=== PATIENT | male | born 1975 | race American Indian/Alaskan Native ===

== ENCOUNTER 2017-03-29 09:52 | Observation (INO) | payer OTHER ==
[2017-03-29 09:54] VITALS: BMI 32.5
--- NOTE | 2017-03-29 10:39 | ED PDOC ---
Upper Extremity Pain/Injury Time Seen by Provider: 03/29/17 10:09 Chief Complaint (Nursing): Upper Extremity Problem/Injury Chief Complaint (Provider): Left arm pain History Per: Patient History/Exam Limitations: no limitations Onset/Duration Of Symptoms: Days Additional Complaint(s): Pt fractured left humerus 03/06/17. Pt states he has been having pain since and has been using percocet but has not helped much. Pt states when he moves or sneezes he feels the bones moving. Past Medical History Reviewed: Historical Data, Nursing Documentation, Vital Signs Vital Signs: Last Vital Signs Temp 97.7 F 03/29/17 09:54 Pulse 86 03/29/17 09:54 Resp 17 03/29/17 09:54 BP 172/108 H 03/29/17 09:54 Pulse Ox 100 03/29/17 09:54 - Medical History PMH: Arthritis, Fractures (left elbow fx,collar bone,right shoulder rotellar cuff), HTN Denies: Depression, Chronic Kidney Disease - Family History Family History: States: Unknown Family Hx - Living Arrangements Living Arrangements: With Family - Social History Current smoker - smoking cessation education provided: No - Immunization History Hx Tetanus Toxoid Vaccination: No Hx Influenza Vaccination: No Hx Pneumococcal Vaccination: No - Home Medications Home Medications: Ambulatory Orders Medication Instructions Recorded Folic Acid 1 mg PO DAILY #30 tab 06/20/16 Thiamine [Vitamin B1 Tab] 100 mg PO DAILY #30 tab 06/20/16 Cyclobenzaprine [Cyclobenzaprine 10 mg PO BID PRN #20 tab 03/14/17 HCl] Famotidine [Pepcid] 20 mg PO DAILY #30 tab 03/14/17 GlipiZIDE SR [Glucotrol XL] 5 mg PO DAILY #30 tab 03/14/17 Losartan [Cozaar] 100 mg PO DAILY #30 tab 03/14/17 Metoprolol Tartrate [Lopressor] 50 mg PO BID #60 tab 03/14/17 Rosuvastatin Calcium [Crestor] 5 mg PO HS #30 tab 03/14/17 oxyCODONE/Acetaminophen [Percocet 1 ea PO Q4 PRN #30 tab 03/14/17 5/325 mg Tab] Ibuprofen [Motrin Tab] 600 mg PO Q8H PRN 03/29/17 amLODIPine [Norvasc] 10 mg PO DAILY 03/29/17 - Allergies Allergies/Adverse Reactions: Allergies Allergy/AdvReac Type Severity Reaction Status Date / Time No Known Allergies Allergy Verified 03/29/17 10:02 Review of Systems ROS Statement: Except As Marked, All Systems Reviewed And Found Negative Constitutional: Negative for: Fever, Sweats Musculoskeletal: Positive for: Arm Pain (Left, upper ) - Laboratory Results Result Diagrams: 03/29/17 10:44 03/29/17 10:44 - ECG O2 Sat by Pulse Oximetry: 100 Medical Decision Making Medical Decision Making: Discussed with Dr. Barnes who would like patient admitted to [facility] for Disposition - Disposition
[2017-03-29 10:48] LABS: HEMATOCRIT 39.3 % (35.0-51.0); MEAN CELL VOLUME 74.8 fl (80.0-94.0); MEAN CORPUSCULAR HEMOGLOBIN 23.6 pg (27.0-31.0); MEAN CORPUSCULAR HGB CONC 31.5 g/dL (33.0-37.0); WHITE BLOOD COUNT 10.8 K/uL (4.8-10.8)
[2017-03-29 11:00] LABS: PARTIAL THROMBOPLASTIN TIME 30.8 Seconds (25.6-37.1)
[2017-03-29 11:11] LABS: ALB/GLOB RATIO 1.4 (1.0-2.1); ALKALINE PHOSPHATASE 89 U/L (38-126); ALT/SGPT 74 U/L (21-72); AST/SGOT 28 U/L (17-59); BILIRUBIN,TOTAL 0.3 mg/dl (0.2-1.3); BLOOD UREA NITROGEN 11 mg/dl (9-20); CALCIUM 9.5 mg/dL (8.4-10.2); CARBON DIOXIDE 21 mmol/L (22-30); CHLORIDE 106 mmol/L (98-107); GFR AFRICAN-AMERICAN > 60; GLUCOSE,RANDOM 150 mg/dL (75-110); POTASSIUM 4.4 MMOL/L (3.6-5.0); SODIUM 139 mmol/l (132-148); TOTAL PROTEIN 7.8 G/DL (6.3-8.2)
[2017-03-29] MEDS ORDERED: Morphine 4 MG/ML VIAL ONE (12:42)
[2017-03-29] MEDS ORDERED: Lidocaine 4% (Laryng-O-Jet) Kit MM ONE (13:13)
[2017-03-29] MEDS ORDERED: Rocuronium 10 mg/ml (5 ml) ONE ×2 (13:13→15:42)
[2017-03-29] MEDS ORDERED: Propofol 10 mg/ml Inj (20 ML) ONE ×2 (13:13→14:26)
[2017-03-29] MEDS ORDERED: Succinylcholine 200 mg/10 ml Inj IV ONE (13:13)
[2017-03-29] MEDS ORDERED: Lidocaine 1% Inj (20ml) ONE (13:17)
[2017-03-29] MEDS ORDERED: ceFAZolin IV 1 gm in Dextrose 2 GM/100 ML BAG IVPB ONE (13:17)
[2017-03-29] MEDS ORDERED: Bupivacaine 0.5% Inj(30mL) ONE (13:17)
[2017-03-29] MEDS ORDERED: EPINEPHrine 1 mg/ml (1:1000) Inj ONE (13:17)
[2017-03-29] MEDS ORDERED: SENSORCAINE 0.5% W/EPINEPHRINE 50ML MDV IJ ONE (13:19)
--- NOTE | 2017-03-29 13:27 | RAD ---
PROCEDURE: Radiographs of the left humerus. HISTORY: left humerus fracture COMPARISON: None. FINDINGS: BONES: Midshaft fracture left humerus. There is distraction and angulation of the major fracture fragments. This does not appear to be a pathologic fracture. SOFT TISSUES: Normal. OTHER FINDINGS: None. IMPRESSION: Acute fracture midshaft left humerus described in greater detail above.
[2017-03-29] MEDS ORDERED: Lactated Ringer's 1,000 ML IV ONE ×3 (14:05→15:40)
[2017-03-29] MEDS ORDERED: Midazolam 2 MG/2 ML VIAL ONE (14:10)
[2017-03-29] MEDS ORDERED: Dexamethasone 4 mg/1 ml ONE (14:41)
[2017-03-29] MEDS ORDERED: Desflurane Inhalation Anesthetic Liq (240 ml) ONE (15:56)
[2017-03-29] MEDS ORDERED: Neostigmine Methylsulfate 2 MG/2 ML ML IV ONE ×2 (16:31→17:46)
[2017-03-29] MEDS ORDERED: Lactated Ringer's 500 ML IV ONE (17:20)
[2017-03-29] MEDS ORDERED: Oxycodone/Acetaminophen 5/325 mg Tab PO PRN ×2 (18:12)
[2017-03-29] MEDS ORDERED: HYDROmorphone 0.5 mg/0.5 ml ISec IVP PRN (18:13)
[2017-03-29] MEDS ORDERED: Lactated Ringer's 1,000 ML IV SCH (18:15)
--- NOTE | 2017-03-29 18:18 | PCM.ANESB1 ---
Interscalene Block - Brachial Plexus Date of Procedure: 03/29/17 Anesthesiologist: Darwin Pre-Procedure Diagnosis: Left humerus fracture Post-Procedure Diagnosis: Same Procedure Performed: Interscalene Block of Brachial Plexus Left - Procedure Interscalene Block of Brachial Plexus: This procedure was explained to the patient that it is for post-operative pain management. Consent was obtained after a thorough discussion with the patient regarding the benefits and possible complications of local anesthetic block of the Brachial Plexus at the Interscalene area. The patient was brought to the Operating Room and standard monitors were applied. Time out was held with the circulating nurse to confirm the correct surgery and appropriate block. After applying Oxygen by nasal cannula and administering IV Sedation, the patient's head was gently rotated away from the ___left___operative shoulder and the anterior scalene groove was carefully palpated. The ultrasound transducer was then applied to the skin in the transverse plane and the brachial plexus was visualized lateral to the carotid artery and in between the anterior and middle scalene muscles. After identification,the anterior lateral portion of the neck was prepped with Chloraprep and Lidocaine 1% was injected subcutaneously for topical analgesia. At this point, a # 22 gauge Stimuplex 2 inches insulated needle was inserted into the interscalene groove and directed in a caudal and midline direction. The needle was inserted lateral to the ultrasound transducer in-plane towards the brachial plexus in a [id number] direction. Needle advancement was performed carefully under direct ultrasound visualization. Nerve stimulator was used and twitched of the affected extremity including the hand brachialis muscles, biceps and the deltoid was obtained at a current of __0.4___MA. After repeated negative aspiration,_2____cc of__0.5%___,___bupivicaine with 1:200,000 epinephrine were injected and this was followed with __38___cc of __0.5___% bupivicaine with 1:200,000 epinephrine . Under ultrasound guidance the local anesthetics were observed surrounding the roots of the brachial plexus. The needle was removed intact and sterile dressing was applied. The patient had stable vital signs, was conscious and in no apparent distress. The patient tolerated the interscalene block of the bracheal plexus well with stable vital signs and was prepared for subsequent surgery.
--- NOTE | 2017-03-29 18:43 | CP.PCM.HP ---
History of Present Illness - History of Present Illness History of Present Illness: CC: Left Arm Pain after Fracture History of Present Illness: A 41yoM with H/O DMII, HTN and Dyslipidemia presented with fractured left humerus 03/06/17. Pt states he has been having pain since and has been using Percocet but has not helped much. Pt states when he moves or sneezes he feels the bones moving. Present on Admission - Present on Admission Any Indicators Present on Admission: No Review of Systems - Review of Systems All systems: reviewed and no additional remarkable complaints except - Musculoskeletal Musculoskeletal: As Per HPI Past Patient History - Infectious Disease Hx of Infectious Diseases: None - Past Medical History & Family History Past Medical History?: Yes Past Family History: Reviewed and not pertinent - Past Social History Smoking Status: Light Smoker < 10 Cigarettes Daily Drugs: Denies - CARDIAC Hx Hypertension: Yes (HTN) - PULMONARY Hx Respiratory Disorders: No - NEUROLOGICAL Hx Neurological Disorder: No - HEENT Hx HEENT Problems: No - RENAL Hx Chronic Kidney Disease: No - ENDOCRINE/METABOLIC Hx Diabetes Mellitus Type 2: Yes - HEMATOLOGICAL/ONCOLOGICAL Hx Blood Disorders: No - INTEGUMENTARY Hx Dermatological Problems: No - MUSCULOSKELETAL/RHEUMATOLOGICAL Hx Arthritis: Yes Hx Fractures: Yes (left elbow fx,collar bone,right shoulder rotellar cuff) - GASTROINTESTINAL Hx Gastrointestinal Disorders: No - GENITOURINARY/GYNECOLOGICAL Hx Genitourinary Disorders: No - PSYCHIATRIC Hx Depression: No - SURGICAL HISTORY Hx Surgeries: Yes Hx Orthopedic Surgery: Yes (RIGHT ROTATOR, LEFT ELBOW) - ANESTHESIA Hx Anesthesia: Yes Hx Anesthesia Reactions: No Hx Malignant Hyperthermia: No Meds Allergies/Adverse Reactions: Allergies Allergy/AdvReac Type Severity Reaction Status Date / Time No Known Allergies Allergy Verified 03/29/17 10:02 Physical Exam - Constitutional Appears: Well, No Acute Distress - Head Exam Head Exam: ATRAUMATIC, NORMAL INSPECTION, NORMOCEPHALIC - Eye Exam Eye Exam: EOMI, Normal appearance, PERRL Pupil Exam: NORMAL ACCOMODATION, PERRL - ENT Exam ENT Exam: Mucous Membranes Moist, Normal Exam - Neck Exam Neck exam: Positive for: Full Rom, Normal Inspection Additional comments: Surgical scar anteriorly for the C-Spine Surgery - Respiratory Exam Respiratory Exam: Clear to Auscultation Bilateral, NORMAL BREATHING PATTERN - Cardiovascular Exam Cardiovascular Exam: REGULAR RHYTHM, +S1, +S2 - GI/Abdominal Exam GI & Abdominal Exam: Normal Bowel Sounds, Soft. absent: Tenderness - Extremities Exam Additional comments: Left arm S/P ORIF with Immobilizations with Sling, and Neurovacular Bundle normal distal;ly - Back Exam Back exam: NORMAL INSPECTION - Neurological Exam Neurological exam: Alert, CN II-XII Intact, Normal Gait, Oriented x3, Reflexes Normal - Psychiatric Exam Psychiatric exam: Normal Affect, Normal Mood - Skin Skin Exam: Dry, Intact, Normal Color, Warm Results - Vital Signs Recent Vital Signs: Last Vital Signs Temp 97.7 F 03/29/17 09:54 Pulse 89 03/29/17 12:48 Resp 18 03/29/17 12:48 BP 150/90 03/29/17 12:48 Pulse Ox 100 03/29/17 12:50 - Labs Result Diagrams: 03/29/17 10:44 03/29/17 10:44 Labs: Laboratory Results - last 24 hr 03/29/17 03/29/17 03/29/17 10:44 10:44 10:44 WBC 10.8 RBC 5.25 Hgb 12.4 Hct 39.3 MCV 74.8 L MCH 23.6 L MCHC 31.5 L RDW 15.0 H Plt Count 356 PT 10.9 INR 1.0 APTT 30.8 Sodium 139 Potassium 4.4 Chloride 106 Carbon Dioxide 21 L Anion Gap 16 BUN 11 Creatinine 0.8 Est GFR ( Amer) > 60 Est GFR (Non-Af Amer) > 60 POC Glucose (mg/dL) Random Glucose 150 H Calcium 9.5 Total Bilirubin 0.3 AST 28 ALT 74 H Alkaline Phosphatase 89 Total Protein 7.8 Albumin 4.6 Globulin 3.3 Albumin/Globulin Ratio 1.4 Blood Type Antibody Screen Crossmatch BBK History Checked 03/29/17 03/29/17 03/29/17 11:24 16:00 18:30 WBC RBC Hgb Hct MCV MCH MCHC RDW Plt Count PT INR APTT Sodium Potassium Chloride Carbon Dioxide Anion Gap BUN Creatinine Est GFR ( Amer) Est GFR (Non-Af Amer) POC Glucose (mg/dL) 126 H 203 H Random Glucose Calcium Total Bilirubin AST ALT Alkaline Phosphatase Total Protein Albumin Globulin Albumin/Globulin Ratio Blood Type O POSITIVE Antibody Screen Negative Crossmatch See Detail BBK History Checked Patient has bt - EKG Data EKG Interpreted by: Myself EKG shows normal: Sinus rhythm Rate: Normal - EKG Data EKG comments: LVH - Imaging and Cardiology X-Ray Left Humurus: Status: Report reviewed by me Additional comment: Radiographs of the left humerus. HISTORY: left humerus fracture COMPARISON: None. FINDINGS: BONES: Midshaft fracture left humerus. There is distraction and angulation of the major fracture fragments. This does not appear to be a pathologic fracture. SOFT TISSUES: Normal. OTHER FINDINGS: None. IMPRESSION: Acute fracture midshaft left humerus described in greater detail above. Assessment & Plan (1) Closed fracture of shaft of left humerus Assessment and Plan: S/P ORIF today Pain Medication PRN Continue the Sling Status: Acute (2) Diabetes mellitus Status: Chronic (3) Hypertension Status: Chronic (4) Dyslipidemia Status: Chronic
[2017-03-29 19:57] VITALS: RESP 20; O2SAT 97
[2017-03-29 20:42] VITALS: BP 127/72; PULSE 98; TEMP 98
--- NOTE | 2017-03-30 03:18 | CP.PCM.DIS ---
Provider - Provider Date of Admission: 03/29/17 12:04 Attending physician: Shavonne Dow MD Time Spent in preparation of Discharge (in minutes): 20 Diagnosis - Discharge Diagnosis (1) Closed fracture of shaft of left humerus Status: Acute (2) Diabetes mellitus Status: Chronic (3) Hypertension Status: Chronic (4) Dyslipidemia Status: Chronic Hospital Course - Lab Results Lab Results: Most Recent Lab Values WBC 10.8 K/uL (4.8-10.8) 03/29/17 10:44 RBC 5.25 Mil/uL (4.40-5.90) 03/29/17 10:44 Hgb 12.4 g/dL (12.0-18.0) 03/29/17 10:44 Hct 39.3 % (35.0-51.0) 03/29/17 10:44 MCV 74.8 fl (80.0-94.0) L 03/29/17 10:44 MCH 23.6 pg (27.0-31.0) L 03/29/17 10:44 MCHC 31.5 g/dL (33.0-37.0) L 03/29/17 10:44 RDW 15.0 % (11.5-14.5) H 03/29/17 10:44 Plt Count 356 K/uL (130-400) 03/29/17 10:44 PT 10.9 Seconds (9.8-13.1) 03/29/17 10:44 INR 1.0 (0.9-1.2) 03/29/17 10:44 APTT 30.8 Seconds (25.6-37.1) 03/29/17 10:44 Sodium 139 mmol/l (132-148) 03/29/17 10:44 Potassium 4.4 MMOL/L (3.6-5.0) 03/29/17 10:44 Chloride 106 mmol/L (98-107) 03/29/17 10:44 Carbon Dioxide 21 mmol/L (22-30) L 03/29/17 10:44 Anion Gap 16 (10-20) 03/29/17 10:44 BUN 11 mg/dl (9-20) 03/29/17 10:44 Creatinine 0.8 mg/dl (0.8-1.5) 03/29/17 10:44 Est GFR ( Amer) > 60 03/29/17 10:44 Est GFR (Non-Af Amer) > 60 03/29/17 10:44 POC Glucose (mg/dL) 203 mg/dL (65-110) H 03/29/17 18:30 Random Glucose 150 mg/dL (75-110) H 03/29/17 10:44 Calcium 9.5 mg/dL (8.4-10.2) 03/29/17 10:44 Total Bilirubin 0.3 mg/dl (0.2-1.3) 03/29/17 10:44 AST 28 U/L (17-59) 03/29/17 10:44 ALT 74 U/L (21-72) H 03/29/17 10:44 Alkaline Phosphatase 89 U/L (38-126) 03/29/17 10:44 Total Protein 7.8 G/DL (6.3-8.2) 03/29/17 10:44 Albumin 4.6 g/dL (3.5-5.0) 03/29/17 10:44 Globulin 3.3 gm/dL (2.2-3.9) 03/29/17 10:44 Albumin/Globulin Ratio 1.4 (1.0-2.1) 03/29/17 10:44 Blood Type O POSITIVE 03/29/17 16:00 Antibody Screen Negative 03/29/17 16:00 Crossmatch See Detail 03/29/17 16:00 BBK History Checked Patient has bt 03/29/17 16:00 Discharge Exam - Head Exam Head Exam: ATRAUMATIC, NORMAL INSPECTION, NORMOCEPHALIC Discharge Plan - Follow Up Plan Condition: STABLE Disposition: HOME/ ROUTINE
--- NOTE | 2017-03-30 15:29 | CARD ---
APPROVED REPORT EKG Measurement Heart [id number] <Conclusion> Normal sinus rhythm Moderate voltage criteria for LVH, may be normal variant Borderline ECG
--- NOTE | 2017-03-30 19:04 | RAD ---
PROCEDURE: Intraoperative Fluoroscopy. HISTORY: LEFT HUMERUS FINDINGS: Fluoroscopic assistance was provided for open reduction internal fixation of left humeral fracture. Please refer to the operative with a total cumulative dose 4.32 mGy.
--- NOTE | 2017-03-31 21:40 | PCM.SURG1 ---
Surgeon's Initial Post Op Note - Surgeon's Notes Surgeon: jess Sourcing Consultant: paddy Type of Anesthesia: General Endo Pre-Operative Diagnosis: left humerus shaft fracture Operative Findings: see dictation Post-Operative Diagnosis: same Operation Performed: humeral shaft ORIF, radial nerve neuroplasty Specimen/Specimens Removed: o Estimated Blood Loss: EBL {In ML}: 650 Post-Op Condition: Good Date of Surgery/Procedure: 03/29/17 Time of Surgery/Procedure: 14:00
--- NOTE | 2017-04-01 11:02 | CON ---
DATE: 03/29/2017 REASON FOR CONSULTATION: Left humeral shaft fracture. HISTORY OF PRESENT ILLNESS: A 41-year-old male, who presents to the emergency room on today's visit with complaints of left arm pain, instability, and difficulty using his arm. He is complaining of pain of 7-8/10 in severity. The patient states he sustained a fall, landing on his left arm, now with difficulty moving it. Initial x-rays confirmed displaced humeral shaft fracture, and I was consulted for further evaluation. The patient was seen and evaluated in the emergency room and was diagnosed with humeral shaft fracture and radial nerve palsy. PHYSICAL EXAMINATION: EXTREMITIES: Left arm, skin is intact. Sensation is intact to medial, ulnar, nerve distribution to light touch. The patient has weakness of 4/5 on left wrist extension, elbow extension. Distal pulses +2. He has tenderness to palpation over the midshaft with positive ecchymosis. Right upper extremity, full range of motion and strength with biceps, deltoids, triceps, wrist extensors, wrist flexors, and hand intrinsics. X-rays were seen and reviewed, showed a displaced oblique fracture of midshaft humerus. ASSESSMENT: Left humeral shaft fracture with radial nerve palsey PLAN: At this time, we recommended urgent open reduction and internal fixation, and wound exploration, radial nerve exploration The patient agrees and understands the above risks. The patient was taken to the operating room for further management. Les Barnes MD RUTH
--- NOTE | 2017-04-02 08:53 | OP ---
PROCEDURE DATE: 03/29/2017 PREOPERATIVE DIAGNOSES: 1. Displaced left humeral shaft fracture. 2. Left radial nerve neuropathy. POSTOPERATIVE DIAGNOSES: 1. Left humeral shaft oblique displaced fracture. 2. Left radial nerve neuropathy. 3. Soft tissue injury with muscle belly of the triceps. PROCEDURES: 1. Left radial nerve neuroplasty (53947). 2. Left humeral shaft open reduction and internal fixation with [employer] LC-DCP plate (37858). 3. Left humeral shaft open debridement of muscle and bone (88378). 4. . SURGEON: Les Barnes MD MARINE DIESEL MECHANIC: Alannah Pitt MD TYPE OF ANESTHESIA: General with postoperative left upper extremity block. ESTIMATED BLOOD LOSS: 650 mL. COMPLICATIONS: None. SPECIMENS: None. DISPOSITION: Stable to recovery room. INDICATION: This is a 41-year-old right hand dominant male who presented to emergency room on 02/27/2017 with complaint of pain, instability, and difficulty using his left arm. The patient sustained a fall landing on his outstretched left hand. He was simply complaining of pain 8/10 in severity with difficulty using his elbow and wrist. The pain was localized over the mid-shaft . The initial x-rays confirmed displaced spiral, oblique humeral shaft fracture with radial nerve weakness in the left upper extremity. The patient for open exploration of the radial nerve and repair of the fracture site. Risks and benefits of the surgery were explained. Risks include, but not limited to bleeding, infection, tendon, nerve, or vessel injury, instability, chronic pain, and potential need for additional surgery in the future. The patient was seen and evaluated in the emergency room and taken straight to the operating room for nerve exploration and repair. DESCRIPTION OF PROCEDURE: The patient was brought to the operating room and placed supine on the operating room table. After adequate general anesthesia was given, the patient was placed into a lateral decubitus position. All bony prominences were well padded. The left upper extremity was then prepped and draped in the standard surgical fashion. A time-out was performed. A posterior approach was outlined into the humerus. A longitudinal incision was made over the humeral shaft. The superficial veins were cauterized, and dissection was carried down to the biceps was identified and the fascia was incised. Next, interval between the long head and the lateral head of the triceps were developed and split with careful blunt dissection. The dissection was carried to identify the radial nerve, neurovascular bundle . The radial nerve was identified right over the fracture site. The nerve was in continuity. This is carefully identified and dissected out from distal to proximal. The nerve was mobilized as was the neurovascular bundle and freed from the callus and fracture site. The fracture site was copiously irrigated and hematoma was evacuated. There was that of the muscle, which was debrided with rongeurs and curette. The bony cortex fracture site was also debrided with rongeur and curette. The free edges of the fracture site were identified and were reduced under direct visualization and placed with reduction clamps. This was a short oblique fracture cortical screws in lag technique, six screws were placed fixation. Next, under the radial neurovascular bundle technique, the screws were placed and wounds were closed with alignment. Fluoroscopic images again confirmed good plate positioning . The wound was then copiously irrigated. The radial nerve was placed back over the plate proximal to distal . There was no instability or gaping at the fracture site. The wound was then closed with followed by 4-0 Vicryl, followed by kelvin . Sterile dressings were applied. A posterior long-arm splint was placed. The patient tolerated the procedure well and was returned to recovery room in excellent condition. assisted by Dr. Alannah Pitt, a board certified surgeon neurovascular bundle . Les Barnes MD
== END 2017-03-29 21:32 | disposition home or self-care (01) ==
LOC: H.ER 09:52 → H.ERHOLD 12:04 → H.MEDSURG1 20:11
PROVIDERS: ADMIT Internal Medicine; ATTEND Internal Medicine
DX: S42.302A Unspecified fracture of shaft of humerus, left arm, initial encounter for closed fracture (principal); E11.9 Type 2 diabetes mellitus without complications; E78.5 Hyperlipidemia, unspecified; I10 Essential (primary) hypertension; G62.9 Polyneuropathy, unspecified; W19.XXXA Unspecified fall, initial encounter; F17.210 Nicotine dependence, cigarettes, uncomplicated
CPT/HCPCS: 24515; 64712; 73060; 76001; 80053; 82948; 85027; 85610; 85730; 86850; 86900; 86920; 93005; 96374; 99283; C1713; G0378; J0171; J0330; J0690; J1100; J2001; J2250; J2270; J2405; J2704; J2710; J2765; J3010; J7030; J7040; J7120